=== PATIENT | female | born 1995 | race Caucasian/White ===

== ENCOUNTER 2017-03-07 16:45 | Emergency (ER) | payer OTHER ==
[~2017-03-07] VITALS: Ht 165.1 cm; Wt 106.7 kg
[2017-03-07 16:54] VITALS: TEMP 36.6; O2SAT 96; Ht 165.1 cm; Wt 106.7 kg
--- NOTE | 2017-03-07 17:18 | DIAGNOSTIC IMAGING REPORT ---
RIGHT ANKLE 3 VIEWS CLINICAL HISTORY: Fall with right ankle pain. FINDINGS: 3 views of the right ankle are obtained. No prior studies are available for comparison at the time of dictation. The skeletal structures are well mineralized. No fracture is seen. The ankle mortise is intact. No joint effusion is identified. Mild soft tissue swelling is observed. IMPRESSION: Soft tissue swelling with no radiographic evidence of right ankle fracture. Electronically signed by: Dimitry Calixto M.D. 03/07/2017 5:16 PM Dictated Date/Time: 03/07/2017 5:16 PM
[2017-03-07] MEDS ORDERED: BCPILLS PO (17:23)
[2017-03-07] MEDS ORDERED: LEVO75TA5 PO (17:23)
[2017-03-07] MEDS ORDERED: CLR10 PO (17:23)
[2017-03-07] MEDS ORDERED: ESCI1TAB10 PO (17:23)
[2017-03-07] MEDS ORDERED: WLLSR100 PO (17:23)
[2017-03-07] MEDS ORDERED: PRVHFAIN INH (17:23)
--- NOTE | 2017-03-07 17:28 | EMERGENCY ROOM VISIT NOTE ---
History Report prepared by Serina: Mariana Gill Under the Supervision of: Dr. Lazaro Garcia D.O. First contact with patient: 16:48 Stated Complaint: ETOH History of Present Illness The patient is a 21 year old female who presents to the Emergency Room with complaints of an episode of a fall beginning just [employer]. The patient's friend states that the patient was drinking today and had an episode of a fall. She reports that she twisted her right ankle and she is now having pain. She notes that after the fall, they tried to sit the patient up and she fell back and hit her head lightly. The patient denies any head pain. The friend states that the patient was crying and was upset before falling and they were not able to walk back to the [facility] after the fall. The patient notes that she takes Wellbutrin and Lexapro. Source of History: patient Onset: just [employer] Position: other (global) Quality: other (fall) Timing: other (episode) Associated Symptoms: No headache Note: Pt complains of right ankle pain. Review of Systems See HPI for pertinent positives & negatives. A total of 10 systems reviewed and were otherwise negative. Past Medical & Surgical Medical Problems: (1) No Known Active Medical Problems Family History No pertinent family history stated. Social History Marital Status: single Housing Status: lives with roommate Occupation Status: [employer] student Current/Historical Medications Scheduled Control Pills ( Control Pills), 1 TAB PO DAILY Bupropion HCl (Bupropion HCl Sr), 100 MG PO DAILY Escitalopram Oxalate (Lexapro), 20 MG PO DAILY Levothyroxine Sodium (Levothyroxine Sodium), 75 MCG PO DAILY Scheduled PRN Albuterol (Ventolin Hfa), 2 PUFFS INH UD PRN for SOB/Wheezing Loratadine (Claritin), 10 MG PO DAILY PRN for Allergy Symptoms Allergies Coded Allergies: Latex (Verified Allergy, Unknown, Unknown, 03/07/17) Physical Exam Vital Signs Date Time Temp Pulse Resp B/P (MAP) Pulse Ox O2 Delivery O2 Flow Rate FiO2 03/07/17 19:32 89 16 104/65 95 Room Air 03/07/17 18:16 93 03/07/17 18:10 95 18 115/76 96 Room Air 03/07/17 17:23 104 18 135/90 93 Room Air 03/07/17 16:54 36.6 118 23 146/104 96 Room Air 03/07/17 16:54 96 Room Air Physical Exam CONSTITUTIONAL/VITAL SIGNS: Reviewed / noted above. GENERAL: Non-toxic in appearance. INTEGUMENTARY: Warm, dry, and [place]. HEAD: Normocephalic. EYES: without scleral icterus or trauma. ENT/OROPHARYNX: clear and moist. LYMPHADENOPATHY/NECK: Is supple without lymphadenopathy or meningismus. RESPIRATORY: Lungs clear and equal. CARDIOVASCULAR: Regular rate and rhythm. GI/ABDOMEN: Soft and nontender. No organomegaly or pulsatile mass. No rebound or guarding. Normal bowel sounds. EXTREMITIES: Warm and well perfused. Mild tenderness to palpation of right ankle , minimal swelling, no obvious deformity, n/v intact BACK: No CVA tenderness. NEUROLOGICAL: Intact without focal deficits. PSYCHIATRIC: normal affect. MUSCULOSKELETAL: Normally developed with good muscle tone. Medical Decision & Procedures ER Provider Diagnostic Interpretation: X ray results and stated below per my interpretation and radiology interpretation. RIGHT ANKLE 3 VIEWS FINDINGS: 3 views of the right ankle are obtained. No prior studies are available for comparison at the time of dictation. The skeletal structures are well mineralized. No fracture is seen. The ankle mortise is intact. No joint effusion is identified. Mild soft tissue swelling is observed. IMPRESSION: Soft tissue swelling with no radiographic evidence of right ankle fracture. Electronically signed by: Dimitry Calixto M.D. 03/07/2017 5:16 PM Dictated Date/Time: 03/07/2017 5:16 PM Laboratory Results Test 03/07/17 19:21 Ethyl Alcohol mg/dL 186.4 mg/dl (0-3) ED Course 1648: Previous medical records were reviewed. The patient was evaluated in room B11A. A complete history and physical examination was performed. 1722: I reevaluated and updated the patient on her results. 1730: On reevaluation, the patient is doing well. I discussed the results and findings with the patient. She verbalized agreement of the treatment plan. The patient was discharged home. Medical Decision Differential diagnosis: Etiologies such as fracture, dislocation, neurovascular compromise, compartment syndrome, soft tissue injury, as well as others were entertained. This is a 21-year-old female who presents to the ED with a chief complaint of right ankle pain. The patient rolled her ankle while she was walking. She came in with a friend. The patient has mild tenderness to palpation the right ankle. There is minimal swelling. X-ray did not show fracture. Patient was told the results. The patient fell asleep while here before she was discharged. An alcohol level showed 180. She is observed for about 4 hours. She was then awake and alert and oriented. She was felt to be stable for discharge. She is felt to be stable for discharge and outpatient follow-up. Medication Reconcilliation Current Medication List: was personally reviewed by me Blood Pressure Screening Patient's blood pressure: Elevated blood pressure Blood pressure disposition: Elevated BP felt to be situational Impression Primary Impression: Right ankle sprain Additional Impression: Alcoholic intoxication Scribe Attestation The scribe's documentation has been prepared under my direction and personally reviewed by me in its entirety. I confirm that the note above accurately reflects all work, treatment, procedures, and medical decision making performed by me. Departure Information Dispostion Home / Self-Care Forms HOME CARE DOCUMENTATION FORM, IMPORTANT VISIT INFORMATION Patient Instructions Ankle Sprain, My [facility] Additional Instructions Follow-up with your doctor for further care and evaluation in 1-2 days. Return to the emergency department for worsening or new symptoms or any concerns. You have been examined and treated today on an emergency basis only. This is not a substitute for, or an effort to provide, complete comprehensive medical care. It is impossible to recognize and treat all injuries or illnesses in a single emergency department visit. It is therefore important that you follow up closely with your doctor. Call as soon as possible for an appointment. Problem Qualifiers
[2017-03-07 21:40] VITALS: BP 116/68; PULSE 86; O2SAT 98
== END 2017-03-07 21:40 | disposition home or self-care (01) ==
LOC: C.EDB 16:50
DX: S93.401A Sprain of unspecified ligament of right ankle, initial encounter (principal); X58.XXXA Exposure to other specified factors, initial encounter; F10.129 Alcohol abuse with intoxication, unspecified; Y90.6 Blood alcohol level of 120-199 mg/100 ml; Z79.899 Other long term (current) drug therapy; Z91.040 Latex allergy status

== ENCOUNTER → 2017-03-16 | Outpatient (CLI) | payer OTHER ==
[~2017-03-16] MED LIST: BCPILLS PO; CLR10 PO; ESCI1TAB10 PO; LEVO75TA5 PO; PRVHFAIN INH; WLLSR100 PO
--- NOTE | 2017-03-16 12:39 | DIAGNOSTIC IMAGING REPORT ---
CHEST 2 VIEWS ROUTINE CLINICAL HISTORY: R06.02,R06.2,R509,R68.89 FEVER SHORTNESS OF BREATH AND CONGESTION COMPARISON STUDY: No previous studies for comparison. FINDINGS: The cardiac and mediastinal contours are normal. There is no evidence of focal pulmonary consolidation. There is no evidence of failure. No pleural effusions are visualized.[ IMPRESSION: No active disease in the chest. Electronically signed by: Grey Love M.D. 03/16/2017 12:38 PM Dictated Date/Time: 03/16/2017 12:38 PM
== END | disposition home or self-care (01) ==
LOC: C.RAD 12:07
PROVIDERS: ATTEND Physician Assistant
DX: R06.02 Shortness of breath (principal); R06.2 Wheezing; R50.9 Fever, unspecified; R68.89 Other general symptoms and signs